=== PATIENT | male | born 1970 | race Two or more races ===

== ENCOUNTER 2022-01-04 10:06 | Inpatient (IN) | payer OTHER ==
[~2022-01-04] VITALS: Ht 243.8 cm; Wt 5.0 kg
[~2022-01-04 10:06] MED LIST: ANTIVERT25 M1; CELEBREX100 MG; LOSARTAN POTAS100 MG; NEURONTIN300 MG; ULTRAM50 MG
== END 2022-01-05 22:22 | disposition home or self-care (01) | DRG 395 ==
LOC: ER 10:06 → SURH 18:33
PROVIDERS: ADMIT Colon & Rectal Surgery; ATTEND Colon & Rectal Surgery
PROC: BW21YZZ Computerized Tomography (CT Scan) of Abdomen and Pelvis using Other Contrast (ICD-10-PCS; principal; 2022-01-04)
DX: K40.30 Unilateral inguinal hernia, with obstruction, without gangrene, not specified as recurrent (principal); R10.32 Left lower quadrant pain; Z20.822 Contact with and (suspected) exposure to COVID-19

== ENCOUNTER → 2022-05-09 08:00 | Outpatient (CLI) | payer OTHER ==
[~2022-05-09] VITALS: Ht 172.7 cm; Wt 98.9 kg
[~2022-05-09 08:00] MED LIST changes: +BACLOFEN20 MG; +GABAPENTIN600 MG; +INTESTINEX680 M1 PO; +LOSARTAN-HCTZ1 EAC2; +LOSARTAN-HCTZ1 EAC2 PO; +OMEPRAZOLE20 MG; +OMEPRAZOLE20 MG PO; +ULTRAM50 MG PO
== END | disposition home or self-care (01) ==
LOC: LAB 08:00 → CIR.AMB 05-14 10:15 → EDSTATUS 05-14 13:04
PROVIDERS: ATTEND Surgery
DX: K40.91 Unilateral inguinal hernia, without obstruction or gangrene, recurrent (principal)

== ENCOUNTER 2022-05-12 16:10 | Inpatient (IN) | payer OTHER ==
[~2022-05-12] VITALS: Ht 172.7 cm; Wt 97.1 kg
[~2022-05-12 16:10] MED LIST changes: -BACLOFEN20 MG; -GABAPENTIN600 MG; -INTESTINEX680 M1 PO; -LOSARTAN-HCTZ1 EAC2; -LOSARTAN-HCTZ1 EAC2 PO; -OMEPRAZOLE20 MG; -OMEPRAZOLE20 MG PO; -ULTRAM50 MG PO
--- NOTE | 2022-05-12 16:20 | NUR ---
SE RECIBE PTE ALERTA Y ORIENTADO X3,REFIERE TENR DOLOR ABDOMINAL LO REFIERE EL .
[2022-05-13] MEDS ORDERED: BACLOFEN20 MG (14:16)
[2022-05-13] MEDS ORDERED: LOSARTAN-HCTZ1 EAC2 (14:16)
[2022-05-13] MEDS ORDERED: OMEPRAZOLE20 MG (14:17)
[2022-05-13] MEDS ORDERED: GABAPENTIN600 MG (14:17)
[2022-05-15] MEDS ORDERED: INTESTINEX680 M1 PO (14:00)
[2022-05-15] MEDS ORDERED: OMEPRAZOLE20 MG PO (14:00)
[2022-05-15] MEDS ORDERED: LOSARTAN-HCTZ1 EAC2 PO (14:00)
[2022-05-15] MEDS ORDERED: ULTRAM50 MG PO (14:00)
== END 2022-05-15 14:32 | disposition home or self-care (01) | DRG 352 ==
LOC: ER 16:10 → SEC-K 19:27 → SURH 05-13 10:26 → SURG 05-13 12:28
PROVIDERS: Surgery; ADMIT Internal Medicine Geriatric Medicine; ATTEND Internal Medicine Geriatric Medicine
PROC: BW21YZZ Computerized Tomography (CT Scan) of Abdomen and Pelvis using Other Contrast (ICD-10-PCS; 2022-05-12)
PROC: 0YU64JZ Supplement Left Inguinal Region with Synthetic Substitute, Percutaneous Endoscopic Approach (ICD-10-PCS; principal; 2022-05-14 10:30)
DX: K40.31 Unilateral inguinal hernia, with obstruction, without gangrene, recurrent (principal); K59.09 Other constipation; K21.9 Gastro-esophageal reflux disease without esophagitis; E86.0 Dehydration; I10 Essential (primary) hypertension; Z20.822 Contact with and (suspected) exposure to COVID-19; E66.01 Morbid (severe) obesity due to excess calories; G47.39 Other sleep apnea